=== PATIENT | male | born 1980 | race American Indian/Alaskan Native ===

== ENCOUNTER 2020-05-15 09:38 | Outpatient (CLI) | payer OTHER ==
--- NOTE | 2020-05-15 12:47 | Magnetic Resonance Report ---
MRI LEFT FOOT WITHOUT CONTRAST INDICATION / CLINICAL INFORMATION: LEFT FOOT PAIN. TECHNIQUE: Multiplanar, multisequence MR images were obtained. Images obtained before and after the administrati on of 17 cc clariscan COMPARISON: None available. FINDINGS: BONES: No significant bone marrow edema. No fracture. No osseous lesion. JOINTS: No significant arthritis. No significant joint effusion or synovitis. SOFT TISSUES: Deep to the plantar skin marker, there is somewhat elliptical/ovoid low T1/T2 signal fo cus which measures 2.1 x 0.7 cm on sagittal image 9. There is mild enhancement within this after the administration of contrast. This is along the distal medial slip of the plantar fascia. MUSCLES: No significant abnormality. FLEXOR TENDONS: No significant abnormality. EXTENSOR TENDONS: No significant abnormality. LIGAMENTS: No significant abnormality. ADDITIONAL FINDINGS: None. IMPRESSION: 1. 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 Signer Name: Casa Colon MD Signed: 05/15/2020 12:43 PM Workstation Name: [id number]
== END 2020-05-15 09:39 | disposition home or self-care (01) ==
LOC: MRI 09:38
PROVIDERS: ATTEND Internal Medicine
DX: M72.2 Plantar fascial fibromatosis (principal)
CPT/HCPCS: 73720; A9575